=== PATIENT | female | born 1975 | race American Indian/Alaskan Native ===

== ENCOUNTER 2024-03-20 06:29 | Day surgery (SDC) | payer BC, OTHER ==
[2024-03-20] MEDS ORDERED: Lidocaine 2% 5 ML SDV ONE (07:17)
[2024-03-20] MEDS ORDERED: Propofol 200 MG/20 ML SDV ONE (07:17)
[2024-03-20] MEDS ORDERED: dexmedeTOMIDine HCl 200 MCG/2 ML SDV ONE (07:36)
[2024-03-20] MEDS ORDERED: Sodium Chloride 0.9% 20 ML ONE (07:36)
[2024-03-20] MEDS ORDERED: Dexamethasone 4 MG/ML 5 ML MDV ONE (07:37)
[2024-03-20] MEDS ORDERED: Ondansetron 4 MG/2 ML SDV ONE (07:37)
[2024-03-20] MEDS: Lactated Ringers 1,000 ML IV SCH (07:55)
[2024-03-20] MEDS ORDERED: propofoL 500 MG/50 ML 0 ML ONE (08:07)
== END 2024-03-20 09:34 | disposition home or self-care (01) ==
LOC: MW.SDS 06:29
PROVIDERS: ATTEND Surgery
DX: K29.50 Unspecified chronic gastritis without bleeding (principal); K21.00 Gastro-esophageal reflux disease with esophagitis, without bleeding; K31.89 Other diseases of stomach and duodenum; K44.9 Diaphragmatic hernia without obstruction or gangrene; I10 Essential (primary) hypertension
CPT/HCPCS: 43239; J1100; J2405; J2704; J7120; 00731; J3490